=== PATIENT | male | born 2000 | race African-American/Black ===

== ENCOUNTER 2023-11-14 16:40 | Emergency (ER) | payer OTHER ==
[~2023-11-14] VITALS: Ht 177.8 cm; Wt 77.3 kg
[2023-11-14 16:49] VITALS: TEMP 98.4
[2023-11-14] MEDS ORDERED: Cyclobenzaprine 10 MG TAB PO ONE (17:30)
[2023-11-14] MEDS ORDERED: Ibuprofen 600 MG TAB PO ONE (17:30)
[2023-11-14] MEDS ORDERED: Home Cyclobenzaprine 10 MG #2 TABS/PACK PO ONE (18:15)
[2023-11-14 18:45] VITALS: BP 105/59; PULSE 51
== END 2023-11-14 18:45 | disposition home or self-care (01) ==
LOC: COL.ER 16:40
DX: S63.502A Unspecified sprain of left wrist, initial encounter (principal); V49.40XA Driver injured in collision with unspecified motor vehicles in traffic accident, initial encounter; Y92.410 Unspecified street and highway as the place of occurrence of the external cause